=== PATIENT | female | born 1955 | race African-American/Black ===

== ENCOUNTER 2018-02-03 02:00 | Emergency (ER) | payer OTHER ==
[~2018-02-03] VITALS: Ht 167.6 cm; Wt 73.9 kg
[~2018-02-03 02:00] MED LIST: HYDROCHLOROTHIA25 MG
[2018-02-03] MEDS ORDERED: CLARINEX-D 121 EACH (02:10)
[2018-02-03] MEDS ORDERED: CRESTOR10 MG (02:10)
[2018-02-03] MEDS ORDERED: NEXIUM 24HR20 MG (02:11)
[2018-02-03] MEDS ORDERED: KETO10TA2 PO (03:53)
== END 2018-02-03 04:14 | disposition home or self-care (01) ==
LOC: ER 02:00
DX: S93.491A Sprain of other ligament of right ankle, initial encounter (principal); X50.0XXA Overexertion from strenuous movement or load, initial encounter; Y93.89 Activity, other specified; Y92.89 Other specified places as the place of occurrence of the external cause; Y99.8 Other external cause status